=== PATIENT | female | born 1960 | race Caucasian/White ===

== ENCOUNTER 2025-07-09 06:08 | Day surgery (SDC) | payer OTHER, MEDICARE ==
[~2025-07-09] VITALS: Ht 157.5 cm; Wt 65.9 kg
[2025-07-09 07:20] LABS: PLATELET COUNT (AUTO) 264 K/uL (150-450); RED BLOOD CELL COUNT(AUTO) 4.10 MIL/uL (4.00-5.20); RED CELL DISTRIBUTION WIDTH 13.3 % (11.5-14.5); WHITE BLOOD COUNT (AUTO) 7.3 K/uL (4.5-11.0)
[2025-07-09 07:32] LABS: CALCIUM, TOTAL 9.2 mg/dL (8.8-10.5); CREATININE 1.22 mg/dL (0.60-1.30); GLOMERULAR FILTR. RATE CALC 44.0 mL/min (>60); GLUCOSE,RANDOM 101.0 mg/dL (70-110); SODIUM SERUM 140.0 mmol/L (136-145); UREA NITROGEN, BLOOD 20.0 mg/dL (7-18)
[2025-07-09 07:35] LABS: ASPARTATE AMINOTRANSFERASE 22.0 U/L (15-37); TOTAL PROTEIN, SERUM 8.2 g/dL (6.4-8.2)
[2025-07-09 08:11] LABS: RBC MORPHOLOGY COMMENT ABNORMAL RBC MORPH
[2025-07-09] MEDS ORDERED: RINGERS SOLUTION,LACTATED 1,000 ML IV ONE (08:12)
[2025-07-09] MEDS ORDERED: MULT-660 PO (08:35)
[2025-07-09] MEDS ORDERED: FOLI-130 PO (08:35)
[2025-07-09] MEDS ORDERED: FERR325T27 PO (08:35)
[2025-07-09] MEDS ORDERED: FAMO20 PO (08:35)
[2025-07-09] MEDS ORDERED: RISP0.5T80 PO (08:35)
[2025-07-09] MEDS: RINGERS SOLUTION,LACTATED 1,000 ML IV ONE (08:36)
[2025-07-09] MEDS ORDERED: LEVO25TA9 PO (08:42)
[2025-07-09] MEDS ORDERED: MIRA25TA PO (08:42)
[2025-07-09] MEDS ORDERED: ARIP20TA63 PO (08:42)
[2025-07-09] MEDS ORDERED: ACET600C PO (08:42)
[2025-07-09] MEDS ORDERED: NALT50TA33 PO (08:42)
[2025-07-09] MEDS ORDERED: ONDANSETRON HCL 4 MG/2 ML VIAL ONE (12:00)
[2025-07-09] MEDS ORDERED: METOCLOPRAMIDE HCL 5 MG/ML 2 ML VIAL ONE (12:00)
[2025-07-09] MEDS ORDERED: SUGAMMADEX SODIUM 200 MG/2 ML VIAL IVP ONE (12:00)
[2025-07-09] MEDS ORDERED: ROCURONIUM BROMIDE 10 MG/ML 5 ML VIAL ONE (12:00)
[2025-07-09] MEDS ORDERED: DEXAMETHASONE SOD PHOS 4 MG/ML VIAL ONE (12:00)
[2025-07-09] MEDS ORDERED: LIDOCAINE/PF 2% 5 ML VIAL ONE (12:00)
== END 2025-07-09 12:00 | disposition home or self-care (01) ==
LOC: SURGERY 06:08
PROVIDERS: ATTEND Dentist General Practice
DX: K05.20 Aggressive periodontitis, unspecified (principal); K02.9 Dental caries, unspecified; K03.6 Deposits [accretions] on teeth; E03.9 Hypothyroidism, unspecified; N18.9 Chronic kidney disease, unspecified; Z79.890 Hormone replacement therapy
CPT/HCPCS: 41899; 71045; 80053; 85025; 85610; 85730; 36415; 93005; J1100; J3490 ×3; J2765; J2405; J7120